=== PATIENT | male | born 1955 | race Caucasian/White ===

== ENCOUNTER 2016-06-11 14:50 | Emergency (ER) | payer MEDICARE, BC ==
[2016-06-11 14:54] VITALS: BP 90/51; PULSE 92; RESP 12; TEMP 98.7; O2SAT 92
--- NOTE | 2016-06-11 16:35 | PD ---
HPI Chief Complaint: Injury Time Seen by Provider: 16:07 Travel History International Travel<30 days: No Contact w/Intl Traveler<30days: No Traveled to known affect area: No History of Present Illness HPI This patient complains of swelling and discomfort in his left leg. He also has some pain in the sole of his left foot. He has some underlying chronic baseline leg edema but his left leg is worse than usual while his right looks the same. He has baseline gets around with a motorized scooter. He is worried about a blood clot. He has never had one before. There is no injury to his foot or leg. Severity is moderate. No alleviating factors. Duration 2 days. PFSH Past Medical History Hx Anticoagulant Therapy: Yes (ASPIRIN) Cardiovascular Problems: Yes Respiratory: Yes Social History Alcohol Use: No Tobacco Use: No Substance Use: No Allergies-Medications (Allergen,Severity, Reaction): Coded Allergies: Lasix (Verified Allergy, Unknown, 06/11/16) Review of Systems General / Constitutional: No: Fever Eyes: No: Visual changes HENT: No: Headaches Cardiovascular: Positive: Edema, No: Chest Pain or Discomfort Respiratory: No: Shortness of Breath Gastrointestinal: No: Abdominal Pain Genitourinary: No: Dysuria Musculoskeletal: Positive: Edema, Pain Skin: Positive Change in Pigmentation, No Rash Neurologic: No: Weakness Psychiatric: No: Depression Endocrine: No: Polydipsia Hematologic/Lymphatic: No: Easy Bruising Physical Exam Narrative GENERAL: Well-nourished, well-developed patient in no apparent distress. SKIN: Warm and dry. HEAD: Atraumatic. Normocephalic. EYES: Pupils equal and round. No scleral icterus. No injection or drainage. ENT: No nasal bleeding or discharge. Mucous membranes pink and moist. NECK: Trachea midline. No JVD. CARDIOVASCULAR: Regular rate and rhythm. No murmur appreciated. RESPIRATORY: No accessory muscle use. Clear to auscultation. Breath sounds equal bilaterally. GASTROINTESTINAL: Abdomen soft, non-tender, nondistended. Hepatic and splenic margins not palpable. MUSCULOSKELETAL: Has some scoliosis and chronic deformity to the back with multiple surgeries. Has deformity in both feet. Has foot drop in both feet have laxity and flopped to the outside. There is some warmth and erythema in the region of the left lower leg between ankle and knee with asymmetric edema worse on the left than right. Pedal pulses palpable. NEUROLOGICAL: Awake and alert. No obvious cranial nerve deficits. Motor grossly within normal limits. Normal speech. PSYCHIATRIC: Appropriate mood and affect; insight and judgment normal. Data Data Last Documented VS Vital Signs Date Time Temp Pulse Resp B/P Pulse Ox O2 Delivery O2 Flow Rate FiO2 06/11/16 14:54 98.7 92 12 90/51 92 Room Air Orders Foot, Limited (2vws) (06/11/16 ) Us Leg Venous Doppler (06/11/16 ) MDM Medical Decision Making Medical Screen Exam Complete: Yes Emergency Medical Condition: Yes Medical Record Reviewed: Yes Differential Diagnosis DVT, cellulitis, occult stress fracture Narrative Course I have reviewed the patient's electronic medical record. Patient is visiting from [place], never been to the ER here I've ordered x-rays of the left foot, patient was insistent on this. Most importantly, I'm ruling out DVT in the left leg with an ultrasound. This is pending and will be checked out to the 5 PM physician to assist with disposition after results are available. Jose Aguilar MD Jun 11, 2016 16:35
[2016-06-11] MEDS ORDERED: FINA1TAB16 (16:47)
[2016-06-11] MEDS ORDERED: TAMS5CAP PO (16:47)
[2016-06-11] MEDS ORDERED: BUME1TAB26 PO (16:47)
[2016-06-11] MEDS ORDERED: METH1TAB2 PO (16:47)
[2016-06-11] MEDS ORDERED: METO25TA3 PO (16:47)
[2016-06-11] MEDS ORDERED: SIMV20TA PO (16:47)
[2016-06-11] MEDS ORDERED: ASPI81TA81 (16:47)
[2016-06-11] MEDS ORDERED: PANT40TA3 PO (16:47)
[2016-06-11] MEDS ORDERED: SPIR25TA PO (16:47)
[2016-06-11] MEDS ORDERED: MIRA3350 (16:48)
[2016-06-11] MEDS ORDERED: DILT30TA PO (16:48)
[2016-06-11] MEDS ORDERED: COQ-30CA2 (16:48)
[2016-06-11] MEDS ORDERED: SYMB160A INH (16:48)
[2016-06-11] MEDS ORDERED: COLA100C3 PO (16:48)
[2016-06-11] MEDS ORDERED: CENTTAB PO (16:48)
[2016-06-11] MEDS ORDERED: AMOX500C PO (16:48)
[2016-06-11] MEDS ORDERED: CHOL100025 CHEW (16:48)
--- NOTE | 2016-06-11 17:10 | RADRPT ---
EXAM DATE/TIME: 06/11/2016 16:48 [facility] COMPARISON: No previous studies available for comparison. INDICATIONS : Left foot pain since this morning. MEDICAL HISTORY : None. SURGICAL HISTORY : None. ENCOUNTER: Initial ACUITY: 1 day PAIN SCORE: 10/10 LOCATION: Left foot. FINDINGS: Diffuse soft-tissue swelling is noted involving the left ankle and foot. Diffuse osteopenia is noted involving the bones of the foot. There is no acute fracture or dislocation. CONCLUSION: 1. Diffuse soft tissue swelling of the ankle and foot. 2. Diffuse osteopenia. 3. No acute fracture, dislocation or significant arthritic changes. Mauri Gillis MD on June 11, 2016 at 17:04 Board Certified Radiologist. This report was verified electronically.
--- NOTE | 2016-06-11 17:35 | RADRPT ---
EXAM DATE/TIME: 06/11/2016 17:06 [facility] COMPARISON: No previous studies available for comparison. INDICATIONS : Left lower extremity pain. MEDICAL HISTORY : Myocardial infarction. Scolosis. UTIs. Anticoagulant therapy, Aspirin 81mg. SURGICAL HISTORY : Right eye buckle. Rodas rods. Cervical fusions. Gastric banding. Bilateral hip replacments. Righ t rotator cuff surgery. Left testicle removed. ENCOUNTER: Initial ACUITY: 1 day PAIN SCORE: 8/10 LOCATION: Left leg. TECHNIQUE: Venous ultrasound of the leg was performed from the inguinal ligament to the proximal calf. Real-valarie e, color Doppler and spectral tracing, compression and augmentation techniques were used. FINDINGS: There is normal compressibility of the deep venous system from the inguinal region to the proximal ca lf. No echogenic clot is seen in the lumen of the common femoral, femoral, popliteal, and posterior tibial veins. There is a normal response of the venous system to proximal and distal augmentation an d respiration. CONCLUSION: No evidence of deep venous thrombosis within the left lower extremity. Mauri Gillis MD on June 11, 2016 at 17:33 Board Certified Radiologist. This report was verified electronically.
--- NOTE | 2016-06-11 17:46 | PD ---
Physical Exam Date Seen by Provider: Jun 11, 2016 Time Seen by Provider: 17:44 Narrative The patient is a 61-year-old male was initially evaluated by the previous physician, Dr. Espino. Please refer to the initial history, physical, diagnostic evaluation, and treatment modality plan. The patient was signed out of 5 PM with ultrasound and x-ray pending. Data Data Last Documented VS Vital Signs Date Time Temp Pulse Resp B/P Pulse Ox O2 Delivery O2 Flow Rate FiO2 06/11/16 14:54 98.7 92 12 90/51 92 Room Air Orders Foot, Limited (2vws) (06/11/16 ) Us Leg Venous Doppler (06/11/16 ) Electrocardiogram (06/11/16 ) MDM Medical Record Reviewed: Yes Supervised Visit with EMI: No Interpretation(s) Ultrasound the left lower extremity is negative for DVT X-ray of the left foot reveals diffuse soft tissue swelling, no evidence of fracture. Degenerative changes noted. EKG reveals normal sinus rhythm with a rate of 63. Intraventricular conduction delay with QRS 139 ms. Inverted T waves noted in lead 3 and aVF. Q wave noted in lead V1 and V2. Differential Diagnosis Differential diagnosis includes DVT, lymphedema, chronic venous stasis, dependent edema, fracture, dislocation, contusion, cellulitis. Narrative Course The patient was initially evaluated by the previous physician, Dr. chacko. Please refer to the initial history, physical, diagnostic evaluation, and treatment modality plan. Patient was signed out of 5 PM with ultrasound and x- ray pending. X-ray reveals diffuse soft tissue swelling but no obvious fracture. Ultrasound is negative for DVT. The patient is advised elevate legs , wear ANTOINE hose, monitor for signs of infection. I examined the patient's left lower extremity, slightly edematous compared to the right with diminished muscle tone bilateral. No obvious ulcerations or open lesions on inspection of the bottom of the foot in between the toes. Slightly warm, but no obvious erythema. May be dependent edema versus lymphedema. Patient is advised elevate and wear ANTOINE hose. Diagnosis Primary Impression: Edema, lower extremity Qualified Code: R60.0 - Edema of left lower extremity Patient Instructions: General Instructions Additional Instruction: Elevate legs. Wear compression stockings. Please give the patient a copy of his ultrasound report and x-ray report at discharge. Follow-up with a primary physician. Return if symptoms worsen or progress. Med/Other Pt SpecificInfo: No Change to Meds Disposition: 01 DISCHARGE HOME Condition: Stable Soham Luz MD Jun 11, 2016 17:46
[2016-06-11 18:25] VITALS: BP 145/75
--- NOTE | 2016-06-12 22:40 | EKG ---
Date Performed: 06/11/2016 Time Performed: 16:36:07 PTAGE: 61 years EKG: Sinus rhythm MARKED LEFT AXIS DEVIATION INTRAVENTRICULAR CONDUCTION DELAY LEFT VENTRICULAR HYPERTROPHY AND ST-T C HANGE POSSIBLE SEPTAL MYOCARDIAL INFARCTION ACUTE AR NO PREVIOUS TRACING DOCTOR: Eugene Bose Interpretating Date/Time 06/12/2016 22:37:46
== END 2016-06-11 18:49 | disposition home or self-care (01) ==
LOC: NEPB 14:50
DX: R60.0 Localized edema (principal); R94.31 Abnormal electrocardiogram [ECG] [EKG]; Z79.82 Long term (current) use of aspirin
CPT/HCPCS: 73620; 93005; 93971

== ENCOUNTER → 2016-07-30 | Outpatient (CLI) | payer MEDICARE ==
[~2016-07-30] MED LIST: AMOX500C PO; ASPI81TA81; BUME1TAB26 PO; CENTTAB PO; CHOL100025 CHEW; COLA100C3 PO; COQ-30CA2; DILT30TA PO; FINA1TAB16; METH1TAB2 PO; METO25TA3 PO; MIRA3350; PANT40TA3 PO; SIMV20TA PO; SPIR25TA PO; SYMB160A INH; TAMS5CAP PO
== END ==
LOC: CLAB 13:02
PROVIDERS: ATTEND Internal Medicine Interventional Cardiology
DX: T46.0X5A Adverse effect of cardiac-stimulant glycosides and drugs of similar action, initial encounter (principal)
CPT/HCPCS: 36415; 80162

== ENCOUNTER → 2017-09-10 | Outpatient (CLI) | payer MEDICARE, BC ==
[2017-09-10 14:22] LABS: HEMATOCRIT 46.1 % (39.0-51.0); HEMOGLOBIN 15.2 GM/DL (13.0-17.0); MEAN CELL VOLUME 88.9 FL (80.0-100.0); MEAN CORPUSCULAR HEMOGLOBIN 29.4 PG (27.0-34.0); MEAN PLATELET VOLUME 9.6 FL (7.0-11.0); PLATELET COUNT 201 TH/MM3 (150-450); RED BLOOD COUNT 5.18 MIL/MM3 (4.50-5.90); RED CELL DISTRIBUTION WIDTH 15.1 % (11.6-17.2); WHITE BLOOD COUNT 11.8 TH/MM3 (4.0-11.0)
== END ==
LOC: CLAB 13:39
PROVIDERS: ATTEND Internal Medicine Interventional Cardiology
DX: R53.83 Other fatigue (principal); E78.00 Pure hypercholesterolemia, unspecified; R00.2 Palpitations; R06.02 Shortness of breath; I34.0 Nonrheumatic mitral (valve) insufficiency; Z79.899 Other long term (current) drug therapy
CPT/HCPCS: 36415; 84443; 85027